=== PATIENT | male | born 1930 | race Caucasian/White ===

== ENCOUNTER 2018-01-14 15:46 | Emergency (ER) | payer MEDICARE, OTHER ==
[2018-01-14 16:12] VITALS: BP 131/59
--- NOTE | 2018-01-14 16:21 | UC ---
Skin Complaint HPI - HPI Summary HPI Summary: Pt presents with wound to left great toe. Pt tells me that he has DM2 and has extensive toe fungus with thick toe nails. From time to time he will take sandpaper or use an electric ernie to "file down his nails". He was doing this on 12/24 and it slipped and he sustained a laceration at the base of his left great toe. His daughter found out about this today and encouraged him to be seen as she is worried about infection. - History of Current Complaint Chief Complaint: UCSkin Time Seen by Provider: 01/14/18 16:21 Stated Complaint: INFECTION L TOE Hx Obtained From: Patient Onset/Duration: Sudden Onset Onset Severity: Mild Current Severity: Mild Pain Intensity: 3 Pain Scale Used: 0-10 Numeric - Allergy/Home Medications Allergies/Adverse Reactions: Allergies Allergy/AdvReac Type Severity Reaction Status Date / Time bacitracin Allergy unk Verified 01/14/18 16:12 [From Neosporin ([id number])] neomycin Allergy unk Verified 01/14/18 16:12 [From Neosporin ([id number])] polymyxin B Allergy unk Verified 01/14/18 16:12 [From Neosporin ([id number])] Home Medications: Home Medications Pravastatin Sodium 1 tab PO DAILY 01/14/18 [History Confirmed 01/14/18] metFORMIN* [Glucophage 500 MG TAB *] 1 tab PO DAILY 01/14/18 [History Confirmed 01/14/18] Review of Systems Constitutional: Negative Skin: Other - Redness to left great toe Respiratory: Negative Cardiovascular: Negative Neurovascular: Negative Musculoskeletal: Negative Neurological: Negative Psychological: Negative All Other Systems Reviewed And Are Negative: Yes PMH/Surg Hx/FS Hx/Imm Hx Endocrine History: Diabetes, Dyslipidemia Cardiovascular History: Cardiac Disease - Surgical History Surgical History: Yes Surgery Procedure, Year, and Place: cardiac stent, back surgery 1989, - Family History Known Family History: Positive: Unknown - Social History Occupation: Retired Lives: Alone Alcohol Use: None Substance Use Type: None Smoking Status (MU): Never Smoked Tobacco Physical Exam - Summary Physical Exam Summary: GENERAL: NAD. WDWN. No pain distress. SKIN: On the dorsal aspect of the left foot at the base of the 1st MTP, there is a healed 1.0cm linear laceration with surround erythema and mild edema. No bleeding, discharge, or warmth. NECK: Supple. Nontender. No lymphadenopathy. CHEST: CTAB. No r/r/w. No accessory muscle use. Breathing comfortably and in no distress. CV: RRR. Without m/r/g. Pulses intact PT and DP. Brisk cap refill. NEURO: Alert. Sensations intact and symmetric B/L LEs PSYCH: Age appropriate behavior. Triage Information Reviewed: Yes Vital Signs: Initial Vital Signs Temp 98.3 F 01/14/18 16:04 Pulse 75 01/14/18 16:04 Resp 17 01/14/18 16:04 BP 131/59 01/14/18 16:04 Pulse Ox 97 01/14/18 16:04 Course/Dx - Course Course Of Treatment: Cellulitis left great toe. Area appears to be healing - albeit slowly. Mild area of cellulitis and given his DM will cover him with keflex and have him f/u with his PCP - Diagnoses Provider Diagnoses: Cellulitis left great toe Discharge - Discharge Plan Condition: Stable Disposition: HOME Prescriptions: Cephalexin CAP* [Keflex CAP*] 500 mg PO BID #14 cap Patient Education Materials: Cellulitis (DC) Referrals: Sari Clements MD [Primary Care Provider] - Additional Instructions: If you develop a fever, shortness of breath, chest pain, new or worsening symptoms - please call your PCP or go to the ED. 1) Please schedule a follow up appointment with your PCP for 1-2 weeks.
== END 2018-01-14 16:45 | disposition home or self-care (01) ==
LOC: UCEAST 15:46
DX: L03.032 Cellulitis of left toe (principal); E11.9 Type 2 diabetes mellitus without complications; Z79.84 Long term (current) use of oral hypoglycemic drugs; E78.5 Hyperlipidemia, unspecified; I51.9 Heart disease, unspecified; Z95.5 Presence of coronary angioplasty implant and graft; Z88.3 Allergy status to other anti-infective agents
CPT/HCPCS: 99212; G0463

== ENCOUNTER 2019-05-06 11:44 | Day surgery (SDC) | payer MEDICARE, OTHER ==
[~2019-05-06 11:44] MED LIST: Acetaminophen TAB* 325 MG PO PRN; Ciprofloxacin 0.3% OPTH.SOL* BTL ONE; Cyclopentolate 1% OPTH.SOL* 2 ML BTL ONE; Ketorolac 0.5% OPHTH (NF) 0.5 % 5 ML BTL ONE; Lidocaine 1% MPF ** 5 ML VIAL ONE; Phenylephrine OPHTH SOL 2.5%* 2 ML ONE; Povidone Iodine 5% OPTH* 30 ML BTL ONE; Tetracaine 0.5% OPTH.SOL 4 ML* 1 DROP BTL ONE; Tropicamide 1% OPTH.SOL* BTL ONE; acetaZOLAMIDE TAB* 250 MG ONE
[2019-05-06] MEDS ORDERED: Midazolam* 1 MG/ML 2 ML VIAL (2 MG) ONE (13:46)
[2019-05-06 14:48] VITALS: BP 114/61
--- NOTE | 2019-05-06 15:40 | OP ---
DATE OF OPERATION: 05/06/2019 - [facility] DATE OF : 1930. SURGEON: Barber Mcdonough MD ANESTHESIA: Monitored anesthesia care. PREOPERATIVE DIAGNOSIS: Cataract, right eye. POSTOPERATIVE DIAGNOSIS: Cataract, right eye. OPERATIVE PROCEDURE: Extracapsular cataract extraction of the right eye with intraocular lens implant. IMPLANT: SN60WF 21.0 diopter lens to the right eye. COMPLICATIONS: None. DESCRIPTION OF PROCEDURE: The patient was given phenylephrine 2.5 % and cyclopentolate 1% eye drops to the operative eye in the preoperative area. The patient was taken to the operating room where a time-out was taken to identify the correct patient, site, and side of surgery. The patient's right eye was prepped and draped in the usual sterile fashion with 5% Betadine. A second time- out was taken to verify the correct patient, side, and site of surgery, as well as the correct lens implant. A lid speculum was placed to the right eye. A 1mm paracentesis blade was used to make a clear corneal incision. Preservative-free 1% lidocaine was injected into the anterior chamber. DisCoVisc was then injected into the anterior chamber. A 2.75 mm keratome blade was used to make a triplanar incision. A cystotome initiated a capsulorrhexis, which was completed with Utrata forceps in a continuous and curvilinear manner. Hydrodissection of the lens was performed with BSS on a cannula. The lens could be spun in a capsular bag. The phacoemulsification handpiece was used with a divide-and- conquer technique to remove the nucleus. The I/A handpiece then removed the residual cortical lens material. DisCoVisc was injected to inflate the capsular bag. The planned SN60WF 21.0 diopter lens was injected into the capsular bag. The residual DisCoVisc was removed from the eye with the I/A handpiece. The corneal incisions were hydrated and no leaks occurred at physiologic pressure around 20 mmHg per palpation. The lid speculum was removed and drapes were removed. Maxitrol ointment was placed to the surface of the operative eye. An adhesive patch and shield was then placed on the operative eye. The patient was taken to the postoperative area in stable condition. [id number]/[facility] #: [id number] [facility]
== END 2019-05-06 14:35 | disposition home or self-care (01) ==
LOC: OREAST 11:44
PROVIDERS: ATTEND Student in an Organized Health Care Education/Training Program
DX: H25.811 Combined forms of age-related cataract, right eye (principal); E11.9 Type 2 diabetes mellitus without complications; Z79.84 Long term (current) use of oral hypoglycemic drugs; Z85.46 Personal history of malignant neoplasm of prostate; I25.2 Old myocardial infarction; Z95.5 Presence of coronary angioplasty implant and graft; R00.1 Bradycardia, unspecified; I25.10 Atherosclerotic heart disease of native coronary artery without angina pectoris; Z79.01 Long term (current) use of anticoagulants
CPT/HCPCS: A9270-GY; J2250; V2632

== ENCOUNTER 2019-05-13 12:22 | Day surgery (SDC) | payer MEDICARE, OTHER ==
[~2019-05-13 12:22] MED LIST changes: -Acetaminophen TAB* 325 MG PO PRN; -Ciprofloxacin 0.3% OPTH.SOL* BTL ONE; +Neomycin/Polymy/Dex OPHTH.OIN* 3.5 GM ONE
[2019-05-13] MEDS ORDERED: Midazolam* 1 MG/ML 2 ML VIAL (2 MG) ONE (15:09)
[2019-05-13] MEDS ORDERED: Artificial Tear OPHTH.OINT* 3.5 GM ONE (15:15)
--- NOTE | 2019-05-13 16:31 | OP ---
DATE OF OPERATION: 05/13/2019 - [facility] DATE OF : 1930. SURGEON: Barber Mcdonough MD ANESTHESIA: Monitored anesthesia care. PREOPERATIVE DIAGNOSIS: Cataract, left eye. POSTOPERATIVE DIAGNOSIS: Cataract, left eye. OPERATIVE PROCEDURE: Extracapsular cataract extraction of the left eye with intraocular lens implant. IMPLANT: SN60WF 21.5 diopter lens to the left eye. COMPLICATIONS: None. DESCRIPTION OF PROCEDURE: The patient was given phenylephrine 2.5 % and cyclopentolate 1% eye drops to the operative eye in the preoperative area. The patient was taken to the operating room where a time-out was taken to identify the correct patient, site, and side of surgery. The patient's left eye was prepped and draped in the usual sterile fashion with 5% Betadine. A second time- out was taken to verify the correct patient, side, and site of surgery, as well as the correct lens implant. A lid speculum was placed to the left eye. A 1mm paracentesis blade was used to make a clear corneal incision. Preservative-free 1% lidocaine was injected into the anterior chamber. DisCoVisc was then injected into the anterior chamber. A 2.75 mm keratome blade was used to make a triplanar incision. A cystotome initiated a capsulorrhexis, which was completed with Utrata forceps in a continuous and curvilinear manner. Hydrodissection of the lens was performed with BSS on a cannula. The lens could be spun in a capsular bag. The phacoemulsification handpiece was used with a divide-and- conquer technique to remove the nucleus. The I/A handpiece then removed the residual cortical lens material. DisCoVisc was injected to inflate the capsular bag. The planned SN60WF 21.5 diopter lens was injected into the capsular bag. The residual DisCoVisc was removed from the eye with the I/A handpiece. The corneal incisions were hydrated and no leaks occurred at physiologic pressure around 20 mmHg per palpation. The lid speculum was removed and drapes were removed. Maxitrol ointment was placed to the surface of the operative eye. An adhesive patch and shield was then placed on the operative eye. The patient was taken to the postoperative area in stable condition. [id number]/[facility] #: [id number] [facility]
[2019-05-13 17:06] VITALS: BP 111/56
== END 2019-05-13 16:10 | disposition home or self-care (01) ==
LOC: OREAST 12:22
PROVIDERS: ATTEND Student in an Organized Health Care Education/Training Program
DX: H25.812 Combined forms of age-related cataract, left eye (principal); H40.053 Ocular hypertension, bilateral; E11.8 Type 2 diabetes mellitus with unspecified complications; Z79.84 Long term (current) use of oral hypoglycemic drugs; I25.2 Old myocardial infarction; Z85.46 Personal history of malignant neoplasm of prostate; Z95.5 Presence of coronary angioplasty implant and graft; I25.10 Atherosclerotic heart disease of native coronary artery without angina pectoris; Z79.01 Long term (current) use of anticoagulants
CPT/HCPCS: A9270-GY; J2250; V2632